=== PATIENT | male | born 1980 | race Caucasian/White ===

== ENCOUNTER 2025-01-06 11:51 | Emergency (ER) | payer OTHER, SELFPAY ==
[2025-01-06] VITALS (7 sets, daily range): BP systolic 113–153; BP diastolic 76–104; PULSE 75–83; RESP 16–17; TEMP 36.8; O2SAT 99; BMI 31.9
--- NOTE | 2025-01-06 13:11 | EKG12_ITS ---
Test Reason : CP Blood Pressure : */* mmHG Vent. Rate : 73 BPM Atrial Rate : 73 BPM P-R Int : 142 ms QRS Dur : 90 ms QT Int : 352 ms P-R-T Axes : 55 21 17 degrees QTcB Int : 387 ms Normal sinus rhythm Normal ECG Confirmed by GIO WOODRUFF, DEIDRE ([id number]), video effects editor GILBERT MATTHEW ([id number]) on 01/07/2025 6:49:08 AM Referred By: UG/CG Confirmed By: DEIDRE POWERS MD
--- NOTE | 2025-01-06 13:18 | RAD_ITS ---
PROCEDURE: CHEST PA AND LATERAL 01/06/2025 REASON FOR EXAM: CHEST PAIN TECHNIQUE: Procedure Code: RADCXR Modality: DX Procedure: CHEST PA AND LATERAL COMPARISON: None provided. RAD/Chest PA and Lateral IMPRESSION: Lungs appear clear throughout. No pleural effusion or pneumothorax is noted. The cardiomediastinal silhouette is within the normal range. No acute osseous process is seen. Negative examination. Reading Location: [place] [id number]
[2025-01-06 13:19] LABS: Hematocrit 47.6 % (40-54); Hemoglobin 16.3 g/dL (13.0-16.5); Immature Granulocytes Count 0.030 X10^3/uL (0.0-0.0); Mean Corp Hgb Conc 34.2 g/dL (32-36); Mean Corpuscular Volume 82.2 fL (80-94); Mean Platelet Vol. 8.9 fl (6.2-12.0); NRBC Flagged by Analyzer 0 % (0-5); Platelet Count 298 K/mm3 (150-450); RBC Distribution Width CV 11.8 % (11.6-14.6); RBC Distribution Width SD 35.3 fl (35.1-43.9); Red Blood Count 5.79 M/mm3 (4.6-6.2); White Blood Count 8.1 K/mm3 (4.4-11.0)
[2025-01-06 13:42] LABS: Anion Gap 10 (5-15); BUN 15 mg/dL (4-19); BUN/Creat Ratio 21.2 RATIO (10-20); Calcium,Total 9.5 mg/dL (7.6-11.0); Carbon Dioxide 27.9 mmol/L (21.0-32.0); Chloride 101 mmol/L (98-108); Estimated Creatinine Clearance 158.86 ml/min (50-250); Glucose 90 mg/dL (70-99); Potassium 4.2 mmol/L (3.3-5.1); Troponin T High Sensitivity < 6 ng/L (<=22)
[2025-01-06 15:14] LABS: Troponin T High Sens 2 HR 7 ng/L (<=22)
--- NOTE | 2025-01-06 15:40 | EDS_ITS ---
HPI History of Present Illness Chief Complaint: Chest Pain Informant: patient Narrative Narrative: Patient is a 44-year-old male with history of anxiety and recent diagnosis of hypertension (started on lisinopril 2 weeks ago). He is presenting today for chest discomfort. He states for the past 1 to 2 weeks every night when he goes to bed he wakes up about an hour later and feels that there is this pressure/tenseness in his body especially in his chest and his heart is pounding. He will take his blood pressure and is elevated to 150/110. He states has been worse for the past few nights he has been having a hard time sleeping because of it. He notes he just was not feeling well last night. He denies any/abdominal pain but notes he has had some nausea for the past 1 to 2 days. States his bowel movements been normal. Notes he does tend to eat a lar ge meal before going to bed. Denies any history of reflux. Denies any black or blood in his stool. This morning was also having symptoms but his gave him a cup of Electrolyte solution and that seemed to help. He notes that he did stop drinking coffee about a week ago with no improvement of his symptoms. Denies any shortness of breath. Nuys any swelling in his legs. Denies any history of DVT or PE. No other complaints or concerns reported at this time. [facility] Medical History Anxiety Home Medications ?Medication ?Instructions ?Recorded ?Last Taken ?Type lisinopril 10 mg tablet 10 mg PO DAILY BLOOD PRESSUR E 01/06/25 01/05/25 History Allergy/AdvReac Type Severity Reaction Status Date / Time No Known Allergies Allergy Verified 01/06/25 11:53 Family History no significant family his Surgical History no surgical history Social History Smoking Status: Never smoker ROS ROS ED Constitutional Constitutional ED: Denies chills or fever(s) Cardiovascular Cardiovascular: Reports as per HPI, chest pain and palpitations Respiratory/Chest Respiratory/Chest: Denies cough or dyspnea Gastrointestinal Gastrointestinal: Reports nausea; Denies abdominal pain, constipation, diarrhea, melena or vomiting Musculoskeletal Musculoskeletal: Denies arthralgias, back pain or myalgias Integumentary Denies rash Neurologic Neurologic: Denies weakness Psychiatric Psychiatric: Reports anxiety and other Details: Difficulty sleeping Hematologic/Lymphatic Hematologic/Lymphatic: Denies easy bleeding or easy bruising EXAM Physical Exam Const Vital Signs: 01/06/25 11:52 01/06/25 12:51 01/06/25 13:00 Temperature 98.2 F Temperature Source Oral Pulse Rate 83 82 82 Respiratory Rate 16 16 16 Blood Pressure 153/104 H 148/101 H 148/101 H Blood Pressure Mean 120 116 116 Pulse Ox 99 99 99 Oxygen Delivery Method Room Air 01/06/25 13:11 01/06/25 14:00 01/06/25 15:00 Temperature Temperature Source Pulse Rate 82 75 Respiratory Rate 16 17 Blood Pressure 134/82 H 113/76 Blood Pressure Mean 99 88 Pulse Ox 99 99 Oxygen Delivery Method Room Air 01/06/25 16:00 01/06/25 16:01 Temperature 98.2 F Temperature Source Pulse Rate 75 Respiratory Rate 17 Blood Pressure 121/84 H 121/84 H Blood Pressure Mean 96 96 Pulse Ox 99 Oxygen Delivery Method Positive well nourished and well developed General Appearance ED: well developed and NAD HEENT Reports moist mucous membranes Neck supple and no JVD Chest Wall inspection of chest normal Chest Narrative: Very mild discomfort with direct palpation of the left anterior chest. No chest wall crepitus present Resp normal respiratory effort and clear to auscultation bilaterally Cardio regular rate, regular rhythm and no murmurs Cardio Narrative: 2+ radial pulses. GI normal to inspection, nondistended, normoactive bowel sounds, soft to palpation and non-tender Extremity normal to inspection General Extremety ED: Negative for edema General Extremity: Negative for edema Neuro oriented x3 Sensorium / Orientation: awake and alert Motor Exam: Negative for general weakness Psych mental status grossly normal Skin no rashes or lesions noted and no wounds Heart Score History: Slightly/Non-Suspicious ECG: Normal Age: </= 45 years Risk Factors: 1 or 2 Risk Factors Troponin: </= Normal Limit Score: 1 MDM MDM MDM Narrative Medical decision making narrative: Patient evaluated for chest discomfort this been going on for the past 1 to 2 weeks. Seems to be worse at night and better with activity. Differential includes is not limited to ACS (is low risk), arrhythmia, sleep apnea, acid reflux, pleural effusion or pneumonia. He is low risk for pulmonary emboli by PE RC criteria and I do not think he requires D-dimer or further workup. Lab workup including EKG, delta high-sensitivity troponin, CBC and CMP is largely negative. Patient is given aspirin the emergency room. Patient blood pressure minimally elevated 153/104 but on repeat evaluation he is 120/80 and by time of discharge he is 113/76. Suspect there could be a stress response with his blood pressure. Discussed with patient that his workup is largely normal. Discussed scheduling for outpatient stress testing however patient does voice concern about the cost. He does feel comfortable following up with his primary care doctor. His primary care had offered/adjusted outpatient sleep testing for PETE. I think this is a good idea. Also discussed that symptoms could be associated with acid reflux. His abdomen soft nontender he is not have any pain associated with eating/postprandially I do not think he needs biliary/hepatic workup at this time. I will empirically start him on famotidine for a week as well to see if it helps the symptoms. Patient is given return precautions. Discharged home in stable condition. Lab Data Attestation: I reviewed the patient's lab results. Labs: Laboratory Results - last 24 hr 01/06/25 01/06/25 12:42 14:41 WBC 8.1 RBC 5.79 Hgb 16.3 Hct 47.6 MCV 82.2 MCH 28.2 MCHC 34.2 RDW Std Deviation 35.3 RDW Coeff of Ace 11.8 Plt Count 298 MPV 8.9 Immature Gran % (Auto) 0.400 Neut % (Auto) 54.4 Lymph % (Auto) 32.8 Wetzel % (Auto) 9.3 Eos % (Auto) 2.0 Baso % (Auto) 1.1 H Absolute Neuts (auto) 4.4 Absolute Lymphs (auto) 2.65 Nucleated RBC % 0 Sodium 140 Potassium 4.2 Chloride 101 Carbon Dioxide 27.9 Anion Gap 10 BUN 15 Creatinine 0.70 Estim Creat Clear Calc 158.86 Est GFR (MDRD) Non-Af 118 BUN/Creatinine Ratio 21.2 H Glucose 90 Calcium 9.5 Troponin T High Sens < 6 Troponin T Hi Sens 2 Hr 7 Radiography Diagnostic Testing: Clinical Impression(s) from Imaging Studies Chest X-Ray 01/06/25 13:18 IMPRESSION: Lungs appear clear throughout. No pleural effusion or pneumothorax is noted. The cardiomediastinal silhouette is within the normal range. No acute osseous process is seen. Negative examination. Reading Location: [place] [id number] Rhythm Strip Rhythm Strip: Sinus Rhythm Rate: 73 Ectopy: None EKG Initial EKG: Attestation: I personally reviewed and interpreted this EKG as follows: Interpretation: Sinus Rhythm Comments: Normal sinus rhythm rate of 73 beats per Normal axis normal intervals Normal ST segments Discharge Plan Triage Chief Complaint: Chest Pain ED Provider: Jayleen Harrell Dx/Rx/DC Orders Clinical Impression: Chest pain of uncertain etiology, Elevated blood pressure reading Instructions: ED Chest Pain, Uncertain Cause, ED Hypertension, Established Prescriptions: No Action lisinopril 10 mg tablet 10 mg PO DAILY Primary Care Provider: Bhaskar Cuadra Referrals: Bhaskar Cuadra DO [Primary Care Provider, Family Practice] Activity Restrictions/Additional Instructions: Workup today was very normal/reassuring. That cause her symptoms is not clear. Your blood pressure normalized in the emergency room. Please continue taking your daily lisinopril. Please follow-up outpatient with your family doctor and discussed outpatient cardiac evaluation, sleep study and further workup. Please take daily Pepcid as we discussed (famotidine) for a week to see if it does help with your symptoms it seems to be worse at night when you lay down. Print Language: Salvadorean Disposition Disposition: Home, Self Care Discharge Date/Time: 01/06/25 16:02
== END 2025-01-06 16:02 | disposition home or self-care (01) ==
PROVIDERS: Emergency Provider Emergency Medicine; PCP Family Medicine; Visit Provider Emergency Medicine
DX: R07.9 Chest pain, unspecified (principal); R03.0 Elevated blood-pressure reading, without diagnosis of hypertension; R11.0 Nausea; F41.9 Anxiety disorder, unspecified
CPT/HCPCS: 71046; 80048; 84484; 85025; 93005; 99284; A4216